=== PATIENT | female | born 1975 | race Caucasian/White ===

== ENCOUNTER 2022-02-13 01:02 | Emergency (ER) | payer OTHER ==
[2022-02-13] MEDS ORDERED: FAMOTIDINE 20 MG/50 ML IVPB 20 MG/50 ML MG IVPB ONE ×2 (01:34→02:47)
[2022-02-13] MEDS ORDERED: MAG HYDROX/AL HYDROX/SIMETH -MYLANTA- ORAL SUSPENSION PO ONE (01:34)
[2022-02-13 01:44] VITALS: BP 141/85; PULSE 100; RESP 18; TEMP 99.5; BMI 25.4
[2022-02-13] MEDS ORDERED: ONDANSETRON 4 MG/2 ML VIAL IVPUSH ONE (01:48)
[2022-02-13] MEDS ORDERED: ONDANSETRON 4 MG/2 ML VIAL ONE (02:47)
[2022-02-13] MEDS ORDERED: MAG HYDROX/AL HYDROX/SIMETH 30 ML UNIT-DOSE CUP ONE (02:47)
[2022-02-13 03:11] LABS: BASO % 0.5 % (0-2.0); HEMATOCRIT 32.3 % (32.4-45.2); HEMOGLOBIN 9.5 GM/dL (10.7-15.3); LYMPH % 14.8 % (8-40); MCHC 29.3 g/dl (32.0-36.0); MEAN CELL VOLUME 60.3 fl (80-96); MEAN PLT VOLUME 8.4 fl (7.5-11.1); NEUT % 77.7 % (42.8-82.8); PLATELET COUNT 394 10^3/uL (134-434); RBC 5.35 M/mm3 (3.60-5.2); RDW 18.8 % (11.6-15.6); WHITE BLOOD COUNT 11.9 K/mm3 (4.0-10.0)
[2022-02-13 03:12] LABS: MCH 17.7 pg (25.7-33.7)
[2022-02-13 03:31] LABS: CALCIUM 9.8 mg/dL (8.5-10.1)
[2022-02-13 03:32] LABS: BLOOD UREA NITROGEN 12.3 mg/dL (7-18)
[2022-02-13 03:34] LABS: CREATININE 0.7 mg/dL (0.55-1.3)
[2022-02-13 03:36] LABS: TOT PROT 9.2 g/dl (6.4-8.2)
[2022-02-13 04:16] LABS: ANISOCYTOSIS 1+; MACROCYTOSIS 1+; TARGET CELLS 1+
== END 2022-02-13 04:29 | disposition home or self-care (01) ==
LOC: JER 01:02
PROC: 3E033GC Introduction of Other Therapeutic Substance into Peripheral Vein, Percutaneous Approach (ICD-10-PCS; principal; 2022-02-13)
PROC: 3E033GC Introduction of Other Therapeutic Substance into Peripheral Vein, Percutaneous Approach (ICD-10-PCS; 2022-02-13)
DX: R10.13 Epigastric pain (principal); R11.0 Nausea
CPT/HCPCS: 36415; 76705-TC; 80053; 83690; 84484; 85025; 93005; 93010; 99285-25